=== PATIENT | male | born 1940 | race Caucasian/White ===

== ENCOUNTER 2023-09-17 11:03 | Emergency (ER) | payer OTHER, MEDICARE ==
[~2023-09-17] VITALS: Ht 177.8 cm; Wt 79.4 kg
[2023-09-17] MEDS ORDERED: TAMS-3 PO (11:17)
[2023-09-17] MEDS ORDERED: ROSU5TAB PO (11:17)
[2023-09-17] MEDS ORDERED: ATEN25TA PO (11:17)
[2023-09-17 11:28] VITALS: BP 115/52; TEMP 97.5; O2SAT 99
== END 2023-09-17 11:28 | disposition home or self-care (01) ==
LOC: ER 11:09
DX: T83.038A Leakage of other urinary catheter, initial encounter (principal); Y92.89 Other specified places as the place of occurrence of the external cause
CPT/HCPCS: A4606; A4663